=== PATIENT | female | born 1950 | race Caucasian/White ===

== ENCOUNTER 2017-08-12 17:48 | Inpatient (IN) | payer MEDICARE ==
[~2017-08-12] VITALS: Ht 167.6 cm; Wt 119.0 kg
[~2017-08-12 17:48] MED LIST: LISI10TA PO; ZOL50 PO
[2017-08-12 18:15] VITALS: BP 135/66; PULSE 93; RESP 16; O2SAT 100
--- NOTE | 2017-08-12 18:30 | ED.REPORT ---
HPI-Hip/Pelvis Prob/Inj Date of Service Aug 12, 2017 ED Provider: Pedro Pacheco DO A 66 year old female with a history of type II diabetes mellitus and hypertension presents to the ED via EMS with right hip pain secondary to a GLF that occurred just prior to arrival. EMS report that the hip is shortened and externally rotated. Her pain has been constant since onset and radiates to her pelvis. The patient was reportedly walking and slipped onto her right side. She has been unable to bear weight or ambulate following the episode. She received morphine and fentanyl en route. She denies any other injuries of this time. The patient admits to alcohol consumption today prior to the fall. Patient denies any weakness, headache, nausea or vomiting following the fall. Nursing Notes Stated Complaint: GROUND LEVEL FALL WITH HIP PAIN Chief Complaint: Extremity Trauma Nursing Notes Reviewed: Yes Allergies: Coded Allergies: No Known Allergies (Verified Allergy, Unknown, 11/16/10) Scheduled Lisinopril-Expunged Drug, Do Not Renew! (Lisinopril-Expunged Drug, Do Not Renew! ) 10 Mg Tablet 10 MG PO DAILY Sertraline-Expunged Drug, Choose New Med! (Sertraline-Expunged Drug, Choose New Med!) 50 Mg Tab 50 MG PO DAILY General Time Seen by Provider: 18:53 Chief Complaint Hip injury right Hx Obtained From: Patient Arrived By: Ambulance Onset Occurred: Just prior to arrival Symptom Duration: Since onset Progression Since Onset: Unchanged Caused by: Accidental Location: Hip, R lateral aspect Quality: Painful Radiation: Does not radiate Severity: Current: Moderate Severity: Maximum: Moderate Associated with: Reports: Unable to walk, Denies: Weakness Pertinent Negative: Pt denies other symptoms Recent Healthcare: No recent doctor visit, No recent hospitalization Past Medical History Past Medical History Type II diabetes mellitus Hypertension Past Surgical History gastric bypass Reports: Smoking History Never Smoker Social History Alcohol Use: "Social" Drug Use: Denies drug use Other Social History: Good social support, , Local resident Ambulatory Status Independent Review of Systems Unable to bear weight or ambulate + pelvic pain Musculoskeletal: Reports: Joint pain (Right hip pain) Neurologic: Denies: Change LOC, Headache, Weakness Complete sys rev & neg: except as marked. GI: Denies: Nausea, Vomiting Physical Exam Initial Vital Signs Vital Signs (First) Date Time Temp Pulse Resp B/P Pulse Ox O2 Delivery O2 Flow Rate FiO2 08/12/17 18:15 36.6 93 16 135/66 100 Nasal Cannula 2 Initial VS: Reviewed Head / Eyes: Atraumatic, Normocephalic, PERRL Neck: Supple, Non-tender, Full range of motion Upper Extremities: Vascular intact, Neuro intact, No swelling, No tenderness Skin: Warm, Dry, No cyanosis Psychiatric: Mood/affect normal, Behavior normal, Normal thought content Lower Extremity / Pelvis / MS: Neurologic intact, Vascular intact Right Hip: Positive: Leg externally rotated, Tenderness present... Axial rotation exacerbates pain R hip - shortened and externally rotated Good DP and PT pulses General/Constitutional: Awake, Alert Behavior: Positive: Appears intoxicated Head / Eyes: Atraumatic, Normocephalic, PERRL Respiratory / Chest: Atraumatic, Breath sounds NL, Breath sounds = bilat, No respiratory distress Cardiovascular: Heart rate NL, Regular rhythm, Heart sounds NL, Peripheral circulation NL, Pulses = bilaterally Abdomen: Atraumatic, Soft, Non-tender, No guarding, No rebound Interpretation & Diagnostics Lab Results Interpretation Result Diagram: 08/12/177 08/12/177 Test 08/12/17 18:27 White Blood Count 7.3th/mm3 (3.8-10.1) Red Blood Count 4.35mil/mm3 (3.90-5.20) Hemoglobin 12.4g/dL (12.0-15.6) Hematocrit 38.9% (35.0-46.0) Mean Corpuscular Volume 89.4fL (81-100) Mean Corpuscular Hemoglobin 28.5pg (27.0-35.0) Mean Corpuscular Hemoglobin Concent 31.9% (32.0-37.0) Red Cell Distribution Width 16.2% (12.3-15.4) Platelet Count 131bil/L (150-400) Neutrophils (%) (Auto) 64.0% (40-74) Lymphocytes (%) (Auto) 25.5% (14-46) Monocytes (%) (Auto) 8.5% (4-12) Eosinophils (%) (Auto) 1.1% (0-5) Basophils (%) (Auto) 0.4% (0-3) Sodium Level 133mEq/L (134-144) Potassium Level 3.9mEq/L (3.5-5.2) Chloride Level 96mEq/L (97-108) Carbon Dioxide Level 19mmol/L (18-29) Blood Urea Nitrogen 14mg/dL (8-27) Creatinine 0.77mg/dL (0.57-1.00) Estimat Glomerular Filtration Rate 107mL/min (>59) Glucose Level 191mg/dL (60-99) Calcium Level 8.9mg/dL (8.5-10.1) Total Bilirubin 0.3mg/dL (0.0-1.2) Aspartate Amino Transf (AST/SGOT) 19U/L (0-50) Alanine Aminotransferase (ALT/SGPT) 13U/L (0-32) Alkaline Phosphatase 78U/L (25-165) Total Protein 7.1g/dL (6.4-8.4) Albumin 4.1g/dL (3.4-5.0) ECG Interpretation ECG Interpretation: Sinus rhythm probable LVH Rate 93 bpm Time: 20:05 Interpreted by: ED physician X-Ray Chest Interpretation Chest Xray Interpretation: IMPRESSION: No acute pulmonary process. Dictated by: Rosalind Flanagan M.D. on 08/12/2017 at 19:07 Interpretation / Wet Read by: Interpret - Radiologist X-Ray Interpretation Xray Interpretation: IMPRESSION: Nondisplaced right intertrochanteric hip fracture. Dictated by: Rosalind Flanagan M.D. on 08/12/2017 at 19:06 X-Ray Ordered: Hip right Interpretation / Wet Read by: Interpret - Radiologist Re-Eval/Medical Decision Med Decision/Clinical Course Hip fracture. Will admit. Re-Evaluation/Progress : Time of Eval: 19:45 Re-Evaluation/Progress Note: Pain is still present following morphine. Patient is informed of her diagnosis. Consultation #1: Referral / Consult Name: Raphael Duarte DO Consulted With: Orthopedic, Surgeon Call Returned at: 19:30 Consulting Engineer: Will see patient, Agrees with eval, Agrees with plan Note: Discussed pt condition. Will operate tomorrow. Consultation #2: Referral / Consult Name: Josh Acevedo MD Consulted With: Hospitalist Call Returned at: 19:48 Consulting Engineer: Will see patient, Agrees with eval, Agrees with plan, Accepts admit Note: Patient condition discussed. Will accept admission. Counseled Regarding: Diagnosis, Lab results, Need for admission Discharge & Departure Impression: Primary Impression: Intertrochanteric fracture of right hip Encounter type: initial encounter Fracture type: closed Qualified Code: S72.141A - Displaced intertrochanteric fracture of right femur, initial encounter for closed fracture Disposition: ADMITTED TO HOSPITAL Discharge Condition All VS Reviewed: Yes Condition: Stable Referrals: Roshni Brown PA-C (PCP) Scribe Attestation Portions of this note were transcribed by Holly Garcia. I, Dr. Linwood Boyer personally performed the history, physical exam and medical decision-making; I reviewed and confirmed the accuracy of the information in the transcribed note. Signed by Aroldo Bertrand, 08/12/17. copies to: Roshni Brown PA-C, Timothy S DO Aug 12, 2017 18:30 HOLLY GARCIA Aug 12, 2017 19:07
[2017-08-12 18:32] LABS: BASOPHILS % (AUTO) 0.4 % (0-3); EOSINOPHILS % (AUTO) 1.1 % (0-5); MONOCYTES % (AUTO) 8.5 % (4-12); Mean Corpuscular Hemoglobin 28.5 pg (27.0-35.0); Mean Corpuscular Volume 89.4 fL (81-100); Platelet Count 131 bil/L (150-400)
[2017-08-12] MEDS ORDERED: Ondansetron 2 mg/mL 2 mL Inj IVPUSH PRN ×2 (18:35→20:00)
[2017-08-12] MEDS ORDERED: 0.9% Sodium Chloride 1,000 ML IV SCH (18:35)
--- NOTE | 2017-08-12 19:08 | DRSVH ---
PROCEDURE: X-RAY CHEST ONE VIEW ([id number]) INDICATIONS: preop TECHNIQUE: One view of the chest was acquired. COMPARISON: None. FINDINGS: Surgical changes and devices: None. Lungs and pleura: No pleural effusions or pneumothorax. Lungs are clear. Mediastinum: Mediastinal contours appear normal. Heart size is normal. Bones and chest wall: No suspicious bony lesions. Overlying soft tissues appear unremarkable. IMPRESSION: No acute pulmonary process. Dictated by: Rosalind Flanagan M.D. on 08/12/2017 at 19:07 Approved by: Rosalind Flanagan M.D. on 08/12/2017 at 19:07
--- NOTE | 2017-08-12 19:08 | DRSVH ---
PROCEDURE: X-RAY PELVIS W/LAT HIP (RT) ([id number]) INDICATIONS: hip pain TECHNIQUE: AP pelvis with lateral view(s) of the right hip(s). COMPARISON: None. FINDINGS: Bones: There is a nondisplaced right intertrochanteric hip fracture. Soft tissues: The visualized bowel gas pattern is normal. No suspicious soft tissue calcifications. IMPRESSION: Nondisplaced right intertrochanteric hip fracture. Dictated by: Rosalind Flanagan M.D. on 08/12/2017 at 19:06 Approved by: Rosalind Flanagan M.D. on 08/12/2017 at 19:06
[2017-08-12] MEDS ORDERED: fentaNYL-PF 50 mCg/mL 2 mL Inj IVPUSH ONE (19:30)
[2017-08-12] MEDS ORDERED: HYDROcodone-APAP 5-325 mg Tablet PO PRN (20:00)
[2017-08-12] MEDS ORDERED: Alum-Mag Hydrox-Simeth 30 mL Suspension PO PRN (20:00)
[2017-08-12] MEDS ORDERED: Polyethylene Glycol (PEG) 17 Gm Powder PO PRN (20:00)
[2017-08-12 21:09] VITALS: BP 135/63; PULSE 106; RESP 18; O2SAT 92
--- NOTE | 2017-08-12 21:25 | PCM.HPMED ---
Subjective Date of Service Aug 12, 2017 Primary Provider: Admitting Physician: Primary Care Physician: Roshni Brown PA-C Attending Physician: Admit Status: From the Emergency Department, Full Admit, Remote Telemetry Chief Complaint: Right hip pain. . History of Present Illness: Mary Gillette is a 66-year-old female with a past medical history significant for osteoporosis untreated, hypertension, hyperlipidemia, diabetes mellitus type II, non-insulin using, with complication of diabetic peripheral neuropathy who presents to [facility] emergency Department via EMS after enduring a ground-level fall. The patient reports that she was checking on baked potatoes in the oven when she lost her balance and slipped and fell on her linoleum floor. She denies loss of consciousness or trauma to her head. She reports right hip pain since the fall. She rates the pain a +9 out of 10 in severity. She reports she "cracked some ribs "several years ago which prompted she be evaluated for osteoporosis. She reports that she is supposed to be taking calcium and vitamin D but does not. She denies headache, vision changes, chest pain, shortness of breath, abdominal pain, nausea, vomiting, fever, chills, dysuria, constipation or diarrhea. She reports that she has been drinking wine tonight. She denies history of alcohol withdrawal, seizures , or DTs. Vital signs in the ER: Temperature 36.6. Pulse 93. Respiratory rate 16. Blood pressure 135/66. Pulse ox 100% on 2 L nasal cannula. She received fentanyl IV 50 g 1, morphine sulfate IV 4 mg 2, and 1 L of NS in the ED. PCP is Roshni Brown PA-C. Review of Systems: A comprehensive review of systems was conducted with the patient and found to be negative except as above in the History of Present Illness. . Allergies Coded Allergies: No Known Allergies (Verified Allergy, Unknown, 11/16/10) Home Medications Medication list gathered from outpatient records: Furosemide 20 mg daily. Gabapentin 300 mg daily at bedtime. Lisinopril 10 mg daily. Metformin 1000 mg twice a day. Pravastatin 40 mg daily at bedtime. Sertraline 150 mg daily. Novolin and 15 units twice a day before meals. . PMH 1. Hypertension. 2. Hyperlipidemia. 3. Diabetes mellitus type II, non-insulin using, with complication of diabetic peripheral neuropathy. 4. Osteoporosis. 5. Depression. . Surgical History 1. Cholecystectomy. 2. section 1. 3. Bilateral cataract extraction. 4. Bilateral carpal tunnel release. 5. Gastric bypass. . Family History Father history unknown. Mother who had hypertension and from breast cancer. . Social History Hx Alcohol Use: Yes (half bottle of wine 2 nights per week) Hx Substance Use: No Hx Tobacco Use: No Smoking Status: Never Smoker Additional Information The patient has been for 50 years. She has 2 biological children who are both healthy. She worked as a homemaker. . Exam Vital Signs Vital Sign - Last Date Time Temp Pulse Resp B/P Pulse Ox O2 Delivery O2 Flow Rate FiO2 08/12/17 18:15 36.6 93 16 135/66 100 Nasal Cannula 2 Exam General: Middle-aged female lying in bed and then no acute distress, appears uncomfortable, well-developed, well-nourished, slurring speech and appears intoxicated. HEENT: Normocephalic, atraumatic. External ears without defect. Pupils equal, round, and reactive to light. Anicteric sclerae, moist conjunctivae, and no lid lag. Oropharynx free of erythema and cobble stoning with moist mucosa. Neck: Supple with full range of motion. No lymphadenopathy or thyromegaly. Cardiovascular: Regular rate and rhythm without murmurs, rubs, or gallops appreciated Pulmonary: Clear to auscultation bilaterally without crackles, wheezes, or rhonchi. Normal respiratory effort with no use of accessory muscles. Abdomen: Soft, obese, nontender, nondistended, bowel sounds present. No hepatosplenomegaly or masses appreciated. Extremities: No clubbing, cyanosis, or edema. Varicose veins. Tenderness to palpation on right lateral aspect of hip. Right leg externally rotated. Skin: Normal temperature, turgor, and texture; no rash, ulcers, or subcutaneous nodules appreciated. Neurological: Cranial nerves grossly intact. Known gait impairment and problems with balance. Psychiatric: Appears intoxicated with slurred speech. Alert and oriented to person, place, and time. . Lab and Diagnostics Labs Item Value Date Time Calcium Level 8.9 mg/dL 08/12/171826 Magnesium Level 1.8 mg/dL 08/12/171826 Total Bilirubin 0.3 mg/dL 08/12/171826 Aspartate Amino Transf (AST/SGOT) 19 U/L 08/12/171826 Alanine Aminotransferase (ALT/SGPT) 13 U/L 08/12/171826 Alkaline Phosphatase 78 U/L 08/12/171826 Total Protein 7.1 g/dL 08/12/171826 Albumin 4.1 g/dL 08/12/171826 Result Diagram: 08/12/17182608/12/171826 X-Rays, CTs and MRIs X-RAY CHEST ONE VIEW IMPRESSION: No acute pulmonary process. Dictated by: Rosalind Flanagan M.D. on 08/12/2017 at 19:07 X-RAY PELVIS W/LAT HIP (RT) IMPRESSION: Nondisplaced right intertrochanteric hip fracture. Dictated by: Rosalind Flanagan M.D. on 08/12/2017 at 19:06 . 12-lead ECG EKG: Sinus rhythm, heart rate 97, borderline normal axis, prolonged QTC otherwise normal intervals, normal R-wave progression, no pathological Q waves or acute ischemic changes such as ST elevation or depression. . Assessment & Plan Mary Gillette is a 66-year-old female with a past medical history significant for osteoporosis untreated, hypertension, hyperlipidemia, diabetes mellitus type II, non-insulin using, with complication of diabetic peripheral neuropathy who presents to [facility] emergency Department via EMS after enduring a ground-level fall. 1. Acute right intertrochanteric fracture, present on admission. Active. - The patient endured a ground-level fall with immediate right hip pain thereafter. Of note, the patient has history of osteoporosis untreated. - Differential diagnosis includes: Imbalance versus mechanical fall versus alcohol intoxication leading to fall. - X-ray of pelvis with right lateral hip demonstrated nondisplaced right intertrochanteric hip fracture, as above. - Ordered Tylenol 975 mg every 6 hours as needed for mild pain, hydrocodone 5- 325 mg 1-2 every 4 hours as needed for moderate pain and hydromorphone 1 mg every 2 hours as needed for severe pain. - Orthopedic physician, Dr. Duarte, has been consulted who plans to perform surgery on the patient tomorrow. NPO after midnight. We appreciate their time and recommendations. 2. Alcohol intoxication, present on admission. Active. - The patient readily admits to drinking wine this evening. She denies any history of alcohol withdrawal, seizure, or DTs. - Continue to monitor VS and patient closely. 3. Acute hyponatremia, present on admission. Active. - Ordered IV fluid hydration with NS at 100 mL/hr. Chronic problems: 4. Hypertension, present on admission. Stable. - Continue lisinopril 10 mg daily. 5. Hyperlipidemia, present on admission. Stable. - Continue pravastatin 40 mg daily at bedtime 6. Diabetes mellitus type II, non-insulin using, with complication of diabetic peripheral neuropathy, present on admission. Stable. - Hemoglobin A1c pending. - Ordered carbohydrate consistent/heart healthy diet. - Ordered low-dose correctional scale insulin. - Continue Novolin N 15 units twice a day before meals. - Continue gabapentin 300 mg daily at bedtime. - Held metformin. 7. Osteoporosis, present on admission. Stable. - Not medically treated. Patient has been instructed to take vitamin D and calcium however she does not. - Recommendation from orthopedic surgery appreciated. 8. Depression, present on admission. Stable. - Continue sertraline 150 mg daily. Medications not yet reconciled. Day team to reconcile medications. PRN antiemetics: Zofran and Maalox. PRN bowel regimen: Senna and MiraLAX. PRN analgesics: Tylenol. Patient is admitted under inpatient status with expected length of stay greater than 2 midnights due to severity of presenting symptoms, risk of adverse event, and complexity of treatment plan. . VTE Prophylaxis: Sub-Q Heparin (Unfractionated) Resuscitation Status: CPR: Attempt Resuscitation Attending Statement The patient was seen and examined together with Dr. Guerrero on 08/12 and I agree with the history, exam and plan as outlined in the note above. copies to: Roshni Brown PA-C, [place] M DO Aug 12, 2017 21:00 Josh Acevedo MD Aug 13, 2017 01:16
[2017-08-12] MEDS ORDERED: HYDROmorphone 0.5 mg/0.5 mL iSecure Syringe IVPUSH PRN (21:35)
[2017-08-12] MEDS ORDERED: Glucose 40% Oral Gel 15 Gm Tube PO PRN (21:35)
--- NOTE | 2017-08-12 21:55 | CONS ---
[address] [address] CONSULTATION REPORT PATIENT: BUCK ALBERTS : 1950 MR#: [id number] ADMIT: 08/12/2017 JOB ID: [id number] DATE OF SERVICE: 08/12/2017 CHIEF COMPLAINT: Right hip pain. HISTORY OF PRESENT ILLNESS: The patient is a 66-year-old female with right hip pain following a fall at home. She was working, baking in the kitchen, and lost her balance, falling onto her right hip. She normally uses a cane or walking stick when outside of the home. She had onset of severe acute pain and was unable to ambulate after the fall. She lives at home with her son and daughter, and has a disabled 20-year-old daughter that she cares for her. PAST MEDICAL HISTORY: Significant for diabetes mellitus type 2, which she states is under good control. Neuropathy and hypertension. PAST SURGICAL HISTORY: Includes cholecystectomy, carpal tunnel release. SURGERIES: section. Gastric bypass. ALLERGIES: No known drug allergies. PHYSICAL EXAMINATION: Blood pressure 135/63, pulse rate 106, respirations 18, temperature 36.7. She is alert and cooperative, in no acute distress. Her right hip skin is intact. Her right lower extremity is shortened and externally rotated. She is able to move her toes. Her dorsalis pedis pulses +2. Capillary refill less than 3 seconds. X-rays demonstrate a right intertrochanteric fracture. ASSESSMENT: Right intertrochanteric hip fracture. PLAN: We discussed treatment options for this, and I recommend right hip nailing. Will plan for this tomorrow and keep the patient n.p.o. after midnight. Plan for surgery tomorrow assuming that she is felt to be medically optimized for surgery. Anticipate that she will need to be in the hospital for about three days and that this will take about six weeks to recover and that she will need additional help in that time.
[2017-08-12] MEDS: Insulin LISPRO 300 Unit/3 mL Inj SUBQ SCH (22:00)
[2017-08-12 22:14] VITALS: BP 147/79; PULSE 108; RESP 17; O2SAT 92
[2017-08-12] MEDS ORDERED: [UNRECOGNIZED DRUG - OTHER] (22:20)
[2017-08-12] MEDS ORDERED: humalog (22:20)
[2017-08-12] MEDS ORDERED: furosemide (22:20)
[2017-08-12] MEDS ORDERED: metformin (22:20)
[2017-08-12] MEDS: 0.9% Sodium Chloride 1,000 ML IV SCH (22:48)
--- NOTE | 2017-08-12 23:46 | NUR ---
Admit Note Pt. arrived at the unit at 2200 via gurney accompanied by ED staff, requires 1-2 PA for bed mobility, oriented to RM and call light, A&Ox3, calm, pleasant and cooperative to staff and care, administered prn IV morphine upon request for right hip pain, pt. reports a relief, Started IVF for hydration, made pt. aware of NPO after midnight, pt. refused butler cath placement at this time, uses bedpan for voiding, notified, placed on tele at midnight [address] 106 per operating room technician, VSS afebrile, call light in reach at all times, will continue to monitor.
[2017-08-13] VITALS (12 sets, daily range): BP systolic 111–149; BP diastolic 52–79; PULSE 87–106; RESP 10–18; O2SAT 91–100
[2017-08-13] MEDS: Heparin 5,000 Unit/mL Inj SUBQ SCH ×3 (00:01→16:30)
[2017-08-13] MEDS ORDERED: LORazepam 0.5 mg Tablet PO ONE (01:40)
[2017-08-13 06:19] LABS: BASOPHILS % (AUTO) 0.2 % (0-3); EOSINOPHILS % (AUTO) 0.7 % (0-5); Mean Corpuscular Volume 90.6 fL (81-100); NEUTROPHILS % (AUTO) 71.1 % (40-74); Platelet Count 93 bil/L (150-400)
[2017-08-13] MEDS ORDERED: fentaNYL-PF 50 mCg/mL 2 mL Inj ONE (07:46)
[2017-08-13] MEDS ORDERED: Propofol 10,000 mCg/mL 20 mL Inj ONE ×2 (07:46→08:10)
[2017-08-13] MEDS ORDERED: Rocuronium 10 mg/mL 5 mL Inj ONE ×2 (07:46→08:10)
[2017-08-13] MEDS: Insulin LISPRO 300 Unit/3 mL Inj SUBQ SCH ×4 (08:00→22:00)
[2017-08-13] MEDS: 0.9% Sodium Chloride 1,000 ML IV SCH ×3 (08:09→23:27)
[2017-08-13] MEDS ORDERED: Neostigmine 1 mg/mL 10 mL Inj ONE (08:10)
[2017-08-13] MEDS ORDERED: Glycopyrrolate 0.2 MG/ML 1mL Inj ONE (08:10)
[2017-08-13] MEDS ORDERED: Ondansetron 2 mg/mL 2 mL Inj ONE (08:10)
[2017-08-13] MEDS ORDERED: HYDROmorphone 1 mg/mL Inj ONE (08:10)
--- NOTE | 2017-08-13 10:51 | NUR ---
Butler 16F butler placed. Tolerated well. draining yellow urine with some sediment present. UA sent to lab with last bedpan use.
[2017-08-13] MEDS ORDERED: HYDROmorphone 1 mg/mL Inj IVPUSH PRN ×3 (11:15→20:25)
--- NOTE | 2017-08-13 11:22 | PCM.PNMED ---
Subjective Date of Service Aug 13, 2017 Subjective Patient seen and examined. In pain. Vitals noted. Exam Vital Signs Vital Sign - Last Date Time Temp Pulse Resp B/P Pulse Ox O2 Delivery O2 Flow Rate FiO2 08/13/17 09:27 90 08/13/17 07:40 36.7 18 135/79 95 Room Air 08/12/17 18:15 2 Intake and Output 08/12/17 08/12/17 08/13/17 Cumulative From/Thru 15:00 23:00 07:00 08/12/17 18:15 - 08/13/17 06:24 Intake Total 1000 ml 972 ml 1972 ml Output Total 950 ml 950 ml Balance 1000 ml 22 ml 1022 ml Intake Oral 240 ml 240 ml IV Total 1000 ml 732 ml 1732 ml Output Urine Total 950 ml 950 ml Exam General: Middle-aged female lying in bed in acute pain Cardiovascular: Regular rate and rhythm without murmurs, rubs, or gallops appreciated Pulmonary: Clear to auscultation bilaterally without crackles, wheezes, or rhonchi. Normal respiratory effort with no use of accessory muscles. Abdomen: Soft, obese, nontender, nondistended, bowel sounds present. No hepatosplenomegaly or masses appreciated. Extremities: No clubbing, cyanosis, or edema. Varicose veins. Tenderness to palpation on right lateral aspect of hip. Right leg externally rotated. Lab and Diagnostics Result Diagram: 08/13/17 0550 08/13/17 0550 X-Rays, CTs and MRIs X-RAY CHEST ONE VIEW IMPRESSION: No acute pulmonary process. Dictated by: Rosalind Flanagan M.D. on 08/12/2017 at 19:07 X-RAY PELVIS W/LAT HIP (RT) IMPRESSION: Nondisplaced right intertrochanteric hip fracture. Dictated by: Rosalind Flanagan M.D. on 08/12/2017 at 19:06 . 12-lead ECG EKG: Sinus rhythm, heart rate 97, borderline normal axis, prolonged QTC otherwise normal intervals, normal R-wave progression, no pathological Q waves or acute ischemic changes such as ST elevation or depression. . Assessment & Plan Mary Gillette is a 66-year-old female with a past medical history significant for osteoporosis untreated, hypertension, hyperlipidemia, diabetes mellitus type II, non-insulin using, with complication of diabetic peripheral neuropathy who presents to [facility] emergency Department via EMS after enduring a ground-level fall. 1. Acute right intertrochanteric fracture, present on admission. Active. - The patient endured a ground-level fall with immediate right hip pain thereafter. Of note, the patient has history of osteoporosis untreated. - Differential diagnosis includes: Imbalance versus mechanical fall versus alcohol intoxication leading to fall. - X-ray of pelvis with right lateral hip demonstrated nondisplaced right intertrochanteric hip fracture, as above. - Ordered Tylenol 975 mg every 6 hours as needed for mild pain, hydrocodone 5- 325 mg 1-2 every 4 hours as needed for moderate pain and hydromorphone 0.5 mg every 2 hours as needed for severe pain. Morphine IV was not helping her - Orthopedic physician, Dr. Duarte, has been consulted who plans to perform surgery today 2. Alcohol intoxication, present on admission. - The patient readily admits to drinking wine this evening. She denies any history of alcohol withdrawal, seizure, or DTs. - Continue to monitor VS and patient closely. 3. Acute hyponatremia, present on admission. Resolved - continue IV fluid hydration NS 50ml/hr Chronic problems: 4. Hypertension, present on admission. Stable. - home meds need to be reconciled, will restart once its done - takes lasix at home for ankle edema, dose unknown, will hold it now anyways as patient will be going for a surgery, restart tomorrow - gently hydrate her at 50mls/hr 5. Hyperlipidemia, present on admission. Stable. - takes parvastatin at home 40mg daily, continue home meds 6. Diabetes mellitus type II, non-insulin using, with complication of diabetic peripheral neuropathy, present on admission. Stable. - Hemoglobin A1c pending. - Ordered carbohydrate consistent/heart healthy diet. - Ordered low-dose correctional scale insulin. patient npo at this point for surgery - Continue Novolin N 15 units twice a day before meals. Home meds need to be reconciled, will restart once its done - takes gabapentin 300 mg daily at bedtime. - Held metformin. Home meds need to be reconciled, will restart once its done 7. Osteoporosis, present on admission. Stable. - Not medically treated. Patient has been instructed to take vitamin D and calcium however she does not. - Recommendation from orthopedic surgery appreciated. 8. Depression, present on admission. Stable. -On sertraline at home, continue home meds. PRN antiemetics: Zofran and Maalox. PRN bowel regimen: Senna and MiraLAX. PRN analgesics: Tylenol. Patient is admitted under inpatient status with expected length of stay greater than 2 midnights due to severity of presenting symptoms, risk of adverse event, and complexity of treatment plan. . VTE Prophylaxis: Sub-Q Heparin (Unfractionated) VTE Mechanical Devices: Intermittant Pneumatic CD Resuscitation Status: CPR: Attempt Resuscitation Time spent 35 mins Neal Diane MD Aug 13, 2017 11:22 Neal Diane MD Aug 13, 2017 11:22
[2017-08-13] MEDS ORDERED: FUR20 PO (12:09)
[2017-08-13] MEDS ORDERED: PRV40T PO (12:09)
[2017-08-13] MEDS ORDERED: GABA-502 PO (12:17)
[2017-08-13] MEDS ORDERED: SERT100T9 ORAL (12:17)
[2017-08-13] MEDS ORDERED: NPH,100V10 SQ (12:17)
[2017-08-13] MEDS ORDERED: LISI10TA PO (12:17)
[2017-08-13] MEDS ORDERED: METF850T2 PO (12:17)
[2017-08-13 12:20] LABS: APPEARANCE,URINE HAZY (CLEAR,HAZY); COLOR,URINE STRAW (YELLOW); OCCULT BLOOD,URINE NEGATIVE (NEGATIVE); UROBILINOGEN,URINE NORMAL (NORMAL)
--- NOTE | 2017-08-13 13:06 | NUR ---
Pain Pt having 8/10 pain in right hip s/p IV Dilaudid 1 hour ago. Request made to MD for change in rx.
[2017-08-13] MEDS: HYDROmorphone 1 mg/mL Inj IVPUSH PRN ×2 (13:34→15:17)
[2017-08-13] MEDS ORDERED: METF-496 PO (14:39)
[2017-08-13] MEDS: Insulin Human NPH 100 Unit/mL Syringe SUBQ SCH (16:30)
[2017-08-13] MEDS ORDERED: Insulin Human NPH 100 Unit/mL 3 mL Inj SUBQ SCH (16:30)
--- NOTE | 2017-08-13 17:10 | NUR ---
Pain/mobility New order received for dilaudid. Pain able to get down to 7/10. able to move hips slightly with pain. Adams placed per MD order, pt request for comfort. Awaiting OR tonight. Will transfer to [facility] post surgery, pt and family aware.
--- NOTE | 2017-08-13 17:30 | NUR ---
To OR Pt taken in bed to OR, present and followed patient. Report given to Carolyne. To transfer to [facility] post surgical procedure.
--- NOTE | 2017-08-13 17:31 | PCM.HPANE ---
Patient Data Surgeon Admitting Provider:Josh Acevedo MD Attending Provider:Neal iDane MD Primary Care Physician:Roshni Brown PA-C Other Provider: Reason for Visit Right It Fracture Ht/WT & BMI Height (Feet): 5 Height (Inches): 6.00 Weight (Kilograms): 111.360 Body Mass Index 39.46 Allergies Coded Allergies: No Known Allergies (Verified Allergy, Unknown, 08/13/17) Past Anesthesia History Anesthesia History: Denies:: Anesthesia Reactions Diabetes History Hx Diabetes?: Yes (type 2) Current Bedside Blood Glucose: 161 MRSA MRSA: No Medications Reported Medications Metformin ER 1,000 Mg Tablet1,000 Mg PO BID #60 08/13/17 NPH, Human Insulin Isophane (Novolin-N U100 Insulin Vial)100 Unit/1 Ml Vial15 Units SQ BID #10 08/13/17 Sertraline HCl (Sertraline)100 Mg Sublax026 Mg ORAL DAILY #30 08/13/17 Lisinopril 10 Mg Ewychb90 Mg PO DAILY 30 Days Ref 0 08/13/17 Gabapentin 300 Mg Suhlrln798 Mg PO HS #30 08/13/17 Pravastatin (Pravachol)40 Mg Lkbwun46 Mg PO HS #30 08/13/17 Furosemide 20 Mg Tab20 Mg PO DAILY #30 08/13/17 Discontinued Reported Medications Metformin 850 Mg Tablet1,000 Mg PO BIDWM Ref 0 08/13/17 [humalog] No Conflict Check15 Bid 08/12/17 [furosemide] No Conflict Check 08/12/17 [metformin] No Conflict Check 08/12/17 Sertraline-Expunged Drug, Choose New Med! 50 Mg Tab50 Mg PO DAILY 11/16/10 Lisinopril-Expunged Drug, Do Not Renew! 10 Mg Yssurm69 Mg PO DAILY 11/16/10 History History of ENT Problems?: Yes HEENT History: Positive for:: Cataracts Sinus Problem Denture Type: None Teeth Condition: Tooth Decay Inflamed Gums Hx of Heart Problems?: Yes Cardiovascular History: Positive for:: Edema Hypertension Denies:: AICD Abdominal Aortic Aneurism Atrial Fibrillation Cardiac Surgery Chest Pain Congestive Heart Failure Coronary Artery Disease Heart Murmur Irregular Heartbeat Pacemaker Peripheral Vascular Rheumatic Fever Thrombophlebitis Valvular Heart Disease Hx of Respiratory Problem?: No Respiratory History: Denies:: Asthma COPD Chest Surgery Cough Dyspnea Emphysema Hemoptysis Oxygen Administration Pneumonia Pulmonary Embolism Tuberculosis Use of C-PAP Machine Use of Inhalers / NEBS Hx Neurologic Problems?: No Neurological History: Denies:: Alzheimer's Disease CVA Dementia Dizziness Headaches Multiple Sclerosis Parkinson's Disease Peripheral Neuropathy Seizures TIA Hx of GI Problems?: Yes Gastrointestinal History: Denies:: Cirrhosis Diverticulitis Gall Bladder Disease Gastroesphageal Reflux Gastrointestinal Bleeding Heartburn Hepatitis Hiatal Hernia Liver Disease Rectal Bleeding Other GI Pertinent History: Cholecystectomy Hx of Problems?: No Genitourinary History: Denies:: HX of Hemodialysis Kidney Stones Urinary Tract Infection Female Hx: Denies:: Currently Endometriosis Pelvic Inflammatory Problems with Breasts? Skin History: Denies:: History Skin Disorders? Pressure Ulcers Hx Musculoskeletal Problems?: Yes Musculoskeletal History: Positive for:: Back Injury (slipped disc) Denies:: Degenerative Joint Fibromyalgia Joint Replacement Musculoskeletal Trauma Myasthenia Gravis Osteoarthritis Rheumatoid Arthritis Systemic Lupus Hx of Psycho/Social Problems?: Yes Psycho Social History: Positive for:: Hx Depression Denies:: Anxiety Bipolar Disorder Suicide Attempt Hx Surgeries?: Yes Hx Any Other Health Problems?: Yes Other History: Positive for:: Cancer (skin cancer that has been resolved) Hospitalization History Blood Transfusions: Positive for:: Accept Blood Products? Denies:: Blood Transfuse Reaction Blood Transfusions Hx Diabetes: Yes (type 2)Bedside Blood Glucose: 161 Other Pertinent History: Gastric bypass, hiatal surgery, , Sh[place], cataract, carpel tunnel surgey Hx Alcohol Use: YesAlcoholic Drinks Per Day: only on the weekendHx Substance Use: No Smoking Status: Never Smoker Stop/Bang Treated for Sleep Apnea?: No Do You Have a CPAP Machine?: No S-Snoring: Do You Snore Loudly: No T-Tired: feel tired, fatigued: No O-Obsered: Observed not breath: No P-Blood Pressure: treated: Yes B- Body Mass Index > 35 kg/m2: Yes A- Age over 50: Yes N- Neck Large Circumference: No G- Gender Male: No ELAINE Total Score: 3 Risk Assessment Category Category 1A: Patient has history of documented sleep apnea, and HAS NOT received any narcotic, sedative or anesthesia administration during this stay. Category 1B: Patient has history of documented sleep apnea, and HAS received any narcotic , sedative or anesthesia administration during this stay Category 2: Patient has SUSPECTED Obstructive Sleep Apnea, and HAS received any narcotic , sedative or anesthesia administration during this stay. Category 3: Patient has SUSPECTED Obstructive Sleep Apnea and HAS NOT received narcotic, sedative or anesthesia administration during this stay. Category 4: Outpatient in Procedural Areas with known sleep apnea or who screen positive for High Risk via the STOP/BANG questionnaire. Exam Exam Vital Signs Vital Signs Date Time Temp Pulse Resp B/P Pulse Ox O2 Delivery O2 Flow Rate FiO2 08/13/17 16:30 36.7 93 16 147/71 96 Room Air 08/13/17 12:45 36.9 94 16 135/76 91 Room Air General Appearance: Alert, Oriented X3, Cooperative, Mild Distress HEENT/AIRWAY: MP 3, Neck Movement (THICK, 30% expected ROM, TMD = 4FB), Mouth Opening (small to moderate) Lungs: Clear to Auscultation Heart: Exam Unremarkable Meds/Labs/Diagnostics Admission Meds Current Medications Sodium Chloride (Normal Saline) 1,000 ml @ 100 mls/hr Q10H IV Last administered on 08/12/17 19:13; Start 08/12/17 at 18:35; Stop 08/12/17 at 20:14 ; Status DC Fentanyl Citrate (Sublimaze Inj) 50 mcg ONCE ONCE IVPUSH Last administered on 08/12/17 19:33; Start 08/12/17 at 19:30; Stop 08/12/17 at 19:31; Status DC Heparin Sodium (Porcine) 5000 unit 5,000 unit Q8 SUBQ Last administered on 08/13 00:01; Start 08/13/17 at 00:30 Sodium Chloride (Normal Saline) 1,000 ml @ 50 mls/hr Q20H IV Last administered on 08/13/17 08:09; Start 08/12/17 at 19:58 Bedside Blood Glucose: 161 Labs Test 08/12/17 18:27 08/13/17 05:50 08/13/17 10:41 Magnesium Level 1.8mg/dL (1.6-2.6) Total Bilirubin 0.3mg/dL (0.0-1.2) Aspartate Amino Transf (AST/SGOT) 19U/L (0-50) Alanine Aminotransferase (ALT/SGPT) 13U/L (0-32) Alkaline Phosphatase 78U/L (25-165) Total Protein 7.1g/dL (6.4-8.4) Albumin 4.1g/dL (3.4-5.0) White Blood Count 5.5th/mm3 (3.8-10.1) Red Blood Count 3.62mil/mm3 (3.90-5.20) Hemoglobin 10.5g/dL (12.0-15.6) Hematocrit 32.8% (35.0-46.0) Mean Corpuscular Volume 90.6fL (81-100) Mean Corpuscular Hemoglobin 29.0pg (27.0-35.0) Mean Corpuscular Hemoglobin Concent 32.0% (32.0-37.0) Red Cell Distribution Width 15.7% (12.3-15.4) Platelet Count 93bil/L (150-400) Neutrophils (%) (Auto) 71.1% (40-74) Lymphocytes (%) (Auto) 18.6% (14-46) Monocytes (%) (Auto) 9.0% (4-12) Eosinophils (%) (Auto) 0.7% (0-5) Basophils (%) (Auto) 0.2% (0-3) Sodium Level 139mEq/L (134-144) Potassium Level 4.5mEq/L (3.5-5.2) Chloride Level 106mEq/L (97-108) Carbon Dioxide Level 24mmol/L (18-29) Blood Urea Nitrogen 11mg/dL (8-27) Creatinine 0.68mg/dL (0.57-1.00) Estimat Glomerular Filtration Rate 123mL/min (>59) Glucose Level 147mg/dL (60-99) Calcium Level 7.7mg/dL (8.5-10.1) Urine Color Straw (YELLOW) Urine Appearance Hazy (CLEAR,HAZY) Urine pH 6.0 (5.0-8.0) Urine Specific [place] 1.020 (1.003-1.035) Urine Protein Negativemg/dL (NEG,TRACE) Urine Glucose (UA) Negativemg/dL (NEGATIVE) Urine Ketones Negativemg/dL (NEGATIVE) Urine Occult Blood Negative (NEGATIVE) Urine Nitrite Positive (NEGATIVE) Urine Bilirubin Negative (NEGATIVE) Urine Urobilinogen Normalmg/dL (NORMAL) Urine Leukocyte Esterase Negative (NEGATIVE) Urine RBC 0-2/hpf (0-2) Urine WBC 6-10/hpf (0-5) Urine Epithelial Cells Occasional/hpf (NONE-MOD) Urine Crystals None seen (NONE SEEN) Urine Bacteria Many/hpf (NONE-FEW) Urine Hyaline Casts Occasional/lpf (NONE) Urine Granular Casts None seen (NONE SEEN) Urine Waxy Casts None seen (NONE SEEN) Urine Red Blood Cell Casts None seen (NONE SEEN) Urine White Blood Cell Casts None seen (NONE SEEN) Urine Mucus None seen (None Seen) Urine Trichomonas None seen (NONE SEEN) Urine Yeast None (NONE SEEN) Urinalysis Comment None Urine Culture Reflexed Indicated Plan Impression Patient chart reviewed, patient interviewed and anesthestic plan with risks, benefits, and alternatives discussed, and informed consent obtained. ASA Physical Status: ASA3 Severe Disease Anesthetic Plan: GA Bene/Risks/Altern/Consents: Yes HP Complete Prior to Induction: Yes Willie Bergman MD Aug 13, 2017 17:31
--- NOTE | 2017-08-13 17:34 | NUR ---
Nasal packing/BP stated nasal packing anytime, order written. Notified of elevated BP, gave hospitalist phone number to consult. Pain 12/29 Addendum: 08/13/17 at 1742 by KARIE RODRIGUEZ RN Charted on wrong patient.
--- NOTE | 2017-08-13 17:47 | NUR ---
Social Work Note: Initial Assessment Data& Assessment: EMR Reviewed. [employer] met with pt at bedside to discuss discharge planning, SW role explained and discharge planning checklist packet provided. Mary Gillette 66 year old female admitted on 08/12/2017 for right hip fracture. Pt has Medicare and AARP supplemental insurance coverage. Pt sees Roshni SHELBY for primary care. Pt does not have VA benefits or LTC insurance. Pt lives in [place] with her spouse in two level home with two steps to enter the home. Pt is independent with all ADL's at baseline and drives normally. Pt owns a cane and occasionally uses the cane outside the home. Pt does not have HH or SNF hx. MD does not identify any concerns for pt capacity for self care at this time. [employer] requested a completed copy of her DPOA/AD paperwork to review and complete when possible. Pt also confirmed that pt to transport pt home when medically ready. Pt denies any needs at this time. [employer] to follow for PT recommendations and evaluation. No MD orders identified. [employer] phone number provided on pt white board. Plan: Anticipated discharge home via POV when medically ready. [employer] to continue to follow if any pt needs or MD orders arise. MISA Gordon Addendum: 08/13/17 at 1751 by CUCA CHENEY Amended: Links added.
[2017-08-13] MEDS ORDERED: Lactated Ringer's 1,000 ML IV ONE ×2 (18:10→20:00)
[2017-08-13] MEDS ORDERED: Lactated Ringer's 500 ML IV PRN (18:58)
[2017-08-13] MEDS ORDERED: Lactated Ringer's 1,000 ML IV SCH (18:58)
[2017-08-13] MEDS ORDERED: Atropine 0.4 mg/mL Inj IVPUSH PRN (19:00)
[2017-08-13] MEDS ORDERED: EPHEDrine Sulfate 50 mg/mL Inj IVPUSH PRN (19:00)
[2017-08-13] MEDS ORDERED: Ondansetron 2 mg/mL 2 mL Inj IVPUSH PRN ×2 (19:00→20:25)
[2017-08-13] MEDS ORDERED: Labetalol 5 mg/mL 20 mL Inj IV PRN (19:00)
[2017-08-13] MEDS ORDERED: MetoCLOpramide 5 mg/mL 2 mL Inj IVPUSH PRN (19:00)
[2017-08-13] MEDS ORDERED: Phenylephrine 10,000 mCg/mL Inj IVPUSH PRN (19:00)
[2017-08-13] MEDS ORDERED: Ropivacaine-PF 0.5% 30 mL Inj INJ ONE (19:05)
[2017-08-13] MEDS ORDERED: Tranexamic Acid 100 mg/mL 10 mL Inj ONE (19:15)
[2017-08-13] MEDS ORDERED: Tranexamic Acid 100 mg/mL 10 mL Inj TOPICAL ONE (19:17)
[2017-08-13] MEDS ORDERED: Polyethylene Glycol (PEG) 17 Gm Powder PO PRN (20:25)
[2017-08-13] MEDS ORDERED: Magnesium Hydroxide 10 mL Oral Concentration PO PRN (20:25)
[2017-08-13] MEDS ORDERED: diphenhydrAMINE 25 mg Capsule PO PRN (20:25)
[2017-08-13] MEDS: Senna-Docusate 8.6-50 mg Tablet PO SCH (20:30)
[2017-08-13] MEDS: fentaNYL-PF 50 mCg/mL 2 mL Inj IVPUSH PRN ×2 (20:37→20:50)
--- NOTE | 2017-08-13 20:43 | PCM.ANEP1 ---
Post Anesthesia PACU Phase 1 Assessment Date of Service: Aug 13, 2017 Vital Signs Vital Signs Date Time Temp Pulse Resp B/P Pulse Ox O2 Delivery O2 Flow Rate FiO2 08/13/17 20:33 87 14 132/57 100 Simple Mask 8 08/13/17 20:24 36.7 91 14 111/78 100 Simple Mask 8 08/13/17 16:30 36.7 93 16 147/71 96 Room Air 08/13/17 12:45 36.9 94 16 135/76 91 Room Air Level of Alertness: Awake, talking Pain: Yes Nausea or Vomiting: No CV Function & Hydration Stable: Yes Airway Device: Oxygen Delivery: Room Air Lungs: Clear to Auscultation PACU Phase 2 Assessment Complications: No Follow up Care: No Patient Instructions Provided: N/A Raphael Valadez MD Aug 13, 2017 20:42
[2017-08-13] MEDS: HYDROcodone-APAP 7.5-325 mg Tablet PO PRN (21:46)
[2017-08-13] MEDS: hydrOXYzine Pamoate 25 mg Capsule PO PRN (21:46)
[2017-08-14] VITALS (7 sets, daily range): BP systolic 98–120; BP diastolic 61–69; PULSE 84–111; RESP 18–20; O2SAT 93–99
[2017-08-14] MEDS: Sodium Chloride LOK Flush 10 mL Syringe IV SCH ×3 (00:09→15:19)
[2017-08-14] MEDS: Heparin 5,000 Unit/mL Inj SUBQ SCH (00:14)
--- NOTE | 2017-08-14 02:25 | OP ---
[address] [address] OPERATIVE REPORT PATIENT: BUCK ALBERTS : 1950 MR#: [id number] ADMIT: 08/12/2017 JOB ID: [id number] DATE OF SURGERY: 08/13/2017 PREOPERATIVE DIAGNOSIS(ES): Right intertrochanteric hip fracture. POSTOPERATIVE DIAGNOSIS(ES): Right intertrochanteric hip fracture. PROCEDURE: Right hip intramedullary nail. SURGEON: Raphael Duarte DO ANESTHESIA: General. INDICATIONS: The patient is a 66-year-old female who fell at home yesterday, sustaining a right intertrochanteric fracture with some subtrochanteric extension. We discussed treatment options for this and she wished to proceed with a right hip nailing. We discussed the risks, benefits, and possible complications of surgery including, but not limited to, injury to nerves and vessels, infection, bleeding, incomplete relief of symptoms, stiffness, need for additional procedures. The patient had good understanding. All questions were answered. She wished to proceed. PROCEDURE IN DETAIL: The patient is brought to the operating room. She was given preoperative antibiotic and general anesthetic. Placed onto the fracture table. The right hip was then reduced with a combination of traction, internal rotation, and confirmation of the reduction was made with fluoroscopy. The right hip was sterilely prepped and draped. An incision was made about three fingerbreadths above the greater trochanter in line with the femur. Dissection was carefully carried through the subcutaneous tissue and down onto the proximal femur. She was noted to have fairly brisk venous bleeding. At this point, a guidewire was placed at the tip of the trochanter and advanced into the intramedullary femur. This was over-reamed with a reamer and then a ball-tipped guidewire was advanced down to the femur. I elected to use a long nail as I was concerned about some subtrochanteric extension. The femur was reamed sequentially up to a 13.5 for placement of a 12 nail which measured 380 mm in length. The 130-degree Synthes PFNA nail was then advanced without difficulty. Again, she was noted to have more than normal bleeding during the reaming process and nail insertion. This was tapped into position and then an incision was made for lag screw placement, and again brisk venous bleeding was noted upon skin incision. The lag screw guide pin was placed into the center-center position of the head and a 110 mm lag screw was inserted, had excellent fixation. Next, a distal lock was performed using a perfect muscogee technique. A small incision was made over the proximal locking screw, and again brisk venous bleeding was encountered. This was drilled and the screw was placed bicortically in the distal femur through the proximal locking hole and through the static locking hole. The wounds were irrigated and then injected with some ropivacaine with epinephrine, and closed with 0 Vicryl to close the deep fascia, 2-0 to close the subcu and the skin was closed with mike. Sterile dressings were applied. The patient tolerated the procedure well. BLOOD LOSS: 500 cc. POSTOPERATIVE PROTOCOL: Have the patient remain 50% partial weightbearing on the right lower extremity. She does seem to have some extension below the lesser trochanter perhaps, and I would like to check PT/INR on her in the morning, and I am concerned the patient may have altered liver function due to alcohol intake.
--- NOTE | 2017-08-14 03:04 | NUR ---
Arrival to Room 1027 Patient arrived to room 1027 from PACU at 2118 via hospital bed accompanied by BENI Cali. Patient alert and oriented x 3. Patient stated pain 7/10 on pain scale. PO Vicodin administered along with Vistaril. VSS. Dressing CDI. Patient stated right leg was "spasming". Dr. Duarte in room to see patient. Call light within reach. Care continues.
[2017-08-14] MEDS: HYDROcodone-APAP 7.5-325 mg Tablet PO PRN ×3 (03:11→12:35)
[2017-08-14] MEDS: CeFAZolin Inj 2 GM in IV Premix 1 EACH IV SCH ×2 (03:12→10:20)
[2017-08-14] MEDS: hydrOXYzine Pamoate 25 mg Capsule PO PRN ×5 (03:32→21:45)
[2017-08-14 06:16] LABS: BASOPHILS % (AUTO) 0.3 % (0-3); EOSINOPHILS % (AUTO) 0.7 % (0-5); MONOCYTES % (AUTO) 8.2 % (4-12); Mean Corpuscular Hemoglobin 28.1 pg (27.0-35.0); Mean Corpuscular Volume 92.5 fL (81-100); NEUTROPHILS % (AUTO) 75.9 % (40-74); Platelet Count 100 bil/L (150-400)
[2017-08-14] MEDS: 0.9% Sodium Chloride 1,000 ML IV SCH (06:25)
--- NOTE | 2017-08-14 06:32 | NUR ---
Dressing Right Hip On second assessment, patient has moderate drainage on upper part of dressing.
[2017-08-14 06:50] LABS: INR 1.07 ratio
[2017-08-14] MEDS: Insulin LISPRO 300 Unit/3 mL Inj SUBQ SCH ×4 (08:00→21:47)
[2017-08-14] MEDS: Senna-Docusate 8.6-50 mg Tablet PO SCH ×2 (08:39→21:53)
--- NOTE | 2017-08-14 08:40 | PCM.PNORTH ---
Subjective Date of Service: Aug 14, 2017 Visit Information: Reason for Visit Right It Fracture Surgery/Surgery Date Post-Op Day # 1 Date of Admission: Aug 12, 2017 at 20:58 Hospital Day # Subjective Patient states she is having severe pain. She states she is trying not to move and her hip still hurts. She is ordering breakfast while we speak Postop General: No Shortness of Breath, No Chest Pain Pain Management: PO Objective Exam Objective Patient sitting up in bed Vital Signs and I/O Vital Sign - Last Date Time Temp Pulse Resp B/P Pulse Ox O2 Delivery O2 Flow Rate FiO2 08/14/17 08:00 36.4 88 19 114/66 93 Room Air 08/14/17 04:50 2.00 Intake and Output 08/13/17 08/13/17 08/14/17 Cumulative From/Thru 15:00 23:00 07:00 08/12/17 18:15 - 08/14/17 06:19 Intake Total 2592 ml 761 ml 5325 ml Output Total 700 ml 300 ml 1950 ml Balance 1892 ml 461 ml 3375 ml Intake Oral 400 ml 640 ml IV Total 2592 ml 361 ml 4685 ml Output Urine Total 700 ml 300 ml 1950 ml # Bowel Movements 0 0 Lab & Micro Results Laboratory Tests Test 08/13/17 10:41 08/14/17 05:30 Urine Color Straw (YELLOW) Urine Appearance Hazy (CLEAR,HAZY) Urine pH 6.0 (5.0-8.0) Urine Specific [place] 1.020 (1.003-1.035) Urine Protein Negativemg/dL (NEG,TRACE) Urine Glucose (UA) Negativemg/dL (NEGATIVE) Urine Ketones Negativemg/dL (NEGATIVE) Urine Occult Blood Negative (NEGATIVE) Urine Nitrite Positive (NEGATIVE) Urine Bilirubin Negative (NEGATIVE) Urine Urobilinogen Normalmg/dL (NORMAL) Urine Leukocyte Esterase Negative (NEGATIVE) Urine RBC 0-2/hpf (0-2) Urine WBC 6-10/hpf (0-5) Urine Epithelial Cells Occasional/hpf (NONE-MOD) Urine Crystals None seen (NONE SEEN) Urine Bacteria Many/hpf (NONE-FEW) Urine Hyaline Casts Occasional/lpf (NONE) Urine Granular Casts None seen (NONE SEEN) Urine Waxy Casts None seen (NONE SEEN) Urine Red Blood Cell Casts None seen (NONE SEEN) Urine White Blood Cell Casts None seen (NONE SEEN) Urine Mucus None seen (None Seen) Urine Trichomonas None seen (NONE SEEN) Urine Yeast None (NONE SEEN) Urinalysis Comment None Urine Culture Reflexed Indicated White Blood Count 6.9th/mm3 (3.8-10.1) Red Blood Count 3.06mil/mm3 (3.90-5.20) Hemoglobin 8.6g/dL (12.0-15.6) Hematocrit 28.3% (35.0-46.0) Mean Corpuscular Volume 92.5fL (81-100) Mean Corpuscular Hemoglobin 28.1pg (27.0-35.0) Mean Corpuscular Hemoglobin Concent 30.4% (32.0-37.0) Red Cell Distribution Width 15.7% (12.3-15.4) Platelet Count 100bil/L (150-400) Neutrophils (%) (Auto) 75.9% (40-74) Lymphocytes (%) (Auto) 14.3% (14-46) Monocytes (%) (Auto) 8.2% (4-12) Eosinophils (%) (Auto) 0.7% (0-5) Basophils (%) (Auto) 0.3% (0-3) Prothrombin Time 11.1sec (8.1-12.5) Prothromb Time International Ratio 1.07ratio Sodium Level 139mEq/L (134-144) Potassium Level 4.6mEq/L (3.5-5.2) Chloride Level 105mEq/L (97-108) Carbon Dioxide Level 27mmol/L (18-29) Blood Urea Nitrogen 8mg/dL (8-27) Creatinine 0.73mg/dL (0.57-1.00) Estimat Glomerular Filtration Rate 114mL/min (>59) Glucose Level 149mg/dL (60-99) Calcium Level 7.5mg/dL (8.5-10.1) Microbiology 08/13/17 Urine Culture - Preliminary, Resulted Result Diagram: 08/14/1752908/14/17 0530 General Appearance: Alert, Oriented X3, Cooperative, Mild Distress Extremities: Distal Pulses Palpable, No Compartment Syndrom Noted Postop Sensory Motor: Distal Motor Intact, Movement in Toes, Distal Sensation Intact, NVI Distally SURGICAL WOUND : Wound Location/Description Perioperative dressings c/d/i Catheters: Urethral 2 Way Adams Assessment & Plan Impression Postop day #1 right hip intramedullary nail Problems: Plan Weightbearin% weightbearing with the right lower extremity Physical therapy for gait training, transfers, and progressive ambulation. DVT prophylaxis: Heparin, managed by hospitalist team. Current PT 11.1 and INR 1.07 Wound care: Perioperative dressings were be changed to island dressing tomorrow by PA Analgesia: Oral analgesics preferred. Apply ice frequently throughout the day. Discharge plan: Discharge home vs SNF in 1-2 days. Follow-up plan: In 2 weeks at [facility] with PA for wound check and at [address] Duarte with x-rays VTE Prophylaxis: Sub-Q Heparin (Unfractionated) Resuscitation Status: CPR: Attempt Resuscitation Marci Doshi PA-C Aug 14, 2017 08:40
[2017-08-14] MEDS ORDERED: Magnesium Hydroxide 10 mL Oral Concentration PO PRN (08:50)
[2017-08-14] MEDS: Insulin Human NPH 100 Unit/mL Syringe SUBQ SCH ×2 (10:13→18:00)
--- NOTE | 2017-08-14 11:30 | NUR ---
Evaluation completed. Please go to "Notes" then click on "Assessments and Notes" (bottom left corner of screen). Then select appropriate discipline tab on top of screen.
--- NOTE | 2017-08-14 14:36 | PCM.PNMED ---
Subjective Date of Service Aug 14, 2017 Subjective Patient seen and examined. Complains of pain, however controlled with oral pain meds. Vitals stable. Exam Vital Signs Vital Sign - Last Date Time Temp Pulse Resp B/P Pulse Ox O2 Delivery O2 Flow Rate FiO2 08/14/17 10:05 88 08/14/17 08:00 36.4 19 114/66 93 Room Air 08/14/17 04:50 2.00 Intake and Output 08/13/17 08/13/17 08/14/17 Cumulative From/Thru 15:00 23:00 07:00 08/12/17 18:15 - 08/14/17 06:19 Intake Total 2592 ml 761 ml 5325 ml Output Total 700 ml 300 ml 1950 ml Balance 1892 ml 461 ml 3375 ml Intake Oral 400 ml 640 ml IV Total 2592 ml 361 ml 4685 ml Output Urine Total 700 ml 300 ml 1950 ml # Bowel Movements 0 0 Exam General: Middle-aged female lying in bed in acute pain Cardiovascular: Regular rate and rhythm without murmurs, rubs, or gallops appreciated Pulmonary: Clear to auscultation bilaterally without crackles, wheezes, or rhonchi. Normal respiratory effort with no use of accessory muscles. Abdomen: Soft, obese, nontender, nondistended, bowel sounds present. No hepatosplenomegaly or masses appreciated. Extremities: No clubbing, cyanosis, or edema. Varicose veins. Bandage over the incision. No signs of bleeding or erythema . Lab and Diagnostics Result Diagram: 08/14/17 0530 08/14/17 0530 X-Rays, CTs and MRIs X-RAY CHEST ONE VIEW IMPRESSION: No acute pulmonary process. Dictated by: Rosalind Flanagan M.D. on 08/12/2017 at 19:07 X-RAY PELVIS W/LAT HIP (RT) IMPRESSION: Nondisplaced right intertrochanteric hip fracture. Dictated by: Rosalind Flanagan M.D. on 08/12/2017 at 19:06 . 12-lead ECG EKG: Sinus rhythm, heart rate 97, borderline normal axis, prolonged QTC otherwise normal intervals, normal R-wave progression, no pathological Q waves or acute ischemic changes such as ST elevation or depression. . Assessment & Plan Mary Gillette is a 66-year-old female with a past medical history significant for osteoporosis untreated, hypertension, hyperlipidemia, diabetes mellitus type II, non-insulin using, with complication of diabetic peripheral neuropathy who presents to [facility] emergency Department via EMS after enduring a ground-level fall. 1. Acute right intertrochanteric fracture, present on admission, s/p right hip intramedullary nail - The patient endured a ground-level fall with immediate right hip pain thereafter. Of note, the patient has history of osteoporosis untreated. - Differential diagnosis includes: Imbalance versus mechanical fall versus alcohol intoxication leading to fall. - X-ray of pelvis with right lateral hip demonstrated nondisplaced right intertrochanteric hip fracture, as above. - Ordered Tylenol 975 mg every 6 hours as needed for mild pain, hydrocodone 5- 325 mg 1-2 every 4 hours as needed for moderate pain and hydromorphone 0.5 mg every 2 hours as needed for severe pain. Morphine IV was not helping her - Orthopedic physician, Dr. Duarte did the surgery 2. Alcohol intoxication, present on admission. resolved - The patient readily admits to drinking wine this evening. She denies any history of alcohol withdrawal, seizure, or DTs. - Continue to monitor VS and patient closely. 3. Acute hyponatremia, present on admission. Resolved - dc iv fluids, patient has appropriate oral intake at this point Chronic problems: 4. Hypertension, present on admission. Stable. - takes lasix and lisinopril at home for ankle edema, will continue 5. Hyperlipidemia, present on admission. Stable. - takes parvastatin at home 40mg daily, continue home meds 6. Diabetes mellitus type II, non-insulin using, with complication of diabetic peripheral neuropathy, present on admission. Stable. - Hemoglobin A1c pending. - Ordered carbohydrate consistent/heart healthy diet. - Ordered low-dose correctional scale insulin. patient npo at this point for surgery - Continue Novolin N 15 units twice a day before meals. - takes gabapentin 300 mg daily at bedtime. - Held metformin. 7. Osteoporosis, present on admission. Stable. - Not medically treated. Patient has been instructed to take vitamin D and calcium however she does not. - Recommendation from orthopedic surgery appreciated. 8. Depression, present on admission. Stable. -On sertraline at home, continue home meds. PRN antiemetics: Zofran and Maalox. PRN bowel regimen: Senna and MiraLAX. PRN analgesics: Tylenol. DVT prophylaxis : Lovenox, as per ortho recs Patient is admitted under inpatient status with expected length of stay greater than 2 midnights due to severity of presenting symptoms, risk of adverse event, and complexity of treatment plan. . VTE Prophylaxis: Sub-Q Heparin (Unfractionated) VTE Mechanical Devices: Intermittant Pneumatic CD Resuscitation Status: CPR: Attempt Resuscitation Time spent 35 mins Neal Diane MD Aug 14, 2017 14:35 Neal Diane MD Aug 14, 2017 14:35
[2017-08-14] MEDS ORDERED: HYDROmorphone 0.5 mg/0.5 mL iSecure Syringe ONE (15:12)
[2017-08-14] MEDS ORDERED: HYDROmorphone 0.5 mg/0.5 mL iSecure Syringe IVPUSH PRN (16:25)
--- NOTE | 2017-08-14 17:40 | NUR ---
POST-OP PROGRESS Hydrocone 7.5 mg/APAP 325 mg 2 tabs + Vistaril 25 mg PO has been helpful for pain relief. Patient rated her pain as 5/10 after her pain medication. Dilaudid 0.5 mg IVP X one administered for BTP. Tolerating liquids PO and her diet. Denies nausea. No emesis noted. Denies SOB. Patient got up and sat in the chair with PT. Back to the bed with 1-2 PA and the FWW. Dressing on her R hip is CDI. IFC d/cd at 1500. No UO noted at this time. Care continues.
[2017-08-14] MEDS ORDERED: PRAVASTATIN 40 MG PO SCH (21:00)
--- NOTE | 2017-08-15 00:12 | NUR ---
Pain/Anxiety On initial assessment, patient stated pain 7/10 on pain scale. Roxycodone 5mg PO administered along with Vistaril PO. Patient appears to be anxious in regards to moving the right leg with almost the appearance of crying when asked to move. Patient encouraged to cough and deep breathe . VSS. Patient voided 50m ml at 2000. Call light is within reach. Hourly rounding continues.
[2017-08-15 00:22] VITALS: BP 96/59; PULSE 109; RESP 16; O2SAT 95
[2017-08-15] MEDS: Sodium Chloride LOK Flush 10 mL Syringe IV SCH ×3 (01:25→16:30)
[2017-08-15 05:35] VITALS: BP 93/53; PULSE 84; RESP 18; O2SAT 91
[2017-08-15] MEDS: hydrOXYzine Pamoate 25 mg Capsule PO PRN ×3 (05:54→23:29)
--- NOTE | 2017-08-15 05:58 | NUR ---
Ambulating Patient had a very difficult time getting out of the bed and pivoting to use the bsc. Patient appears to have no arm strength to properly use the walker. Physical Therapy will be contacted.
[2017-08-15 07:43] LABS: BASOPHILS % (AUTO) 0.3 % (0-3); EOSINOPHILS % (AUTO) 0.3 % (0-5); MONOCYTES % (AUTO) 8.6 % (4-12); Mean Corpuscular Hemoglobin 29.2 pg (27.0-35.0); Mean Corpuscular Volume 92.2 fL (81-100); NEUTROPHILS % (AUTO) 80.7 % (40-74); Platelet Count 96 bil/L (150-400)
[2017-08-15] MEDS: Insulin Human NPH 100 Unit/mL Syringe SUBQ SCH ×2 (07:48→19:08)
[2017-08-15] MEDS: Insulin LISPRO 300 Unit/3 mL Inj SUBQ SCH ×4 (08:09→21:55)
[2017-08-15] MEDS: Senna-Docusate 8.6-50 mg Tablet PO SCH ×2 (08:10→20:38)
--- NOTE | 2017-08-15 08:54 | PCM.PNORTH ---
Subjective Date of Service: Aug 15, 2017 Visit Information: Reason for Visit Right It Fracture Surgery/Surgery Date right hip IM nail 08/13/2017 Post-Op Day # 2 Date of Admission: Aug 12, 2017 at 20:58 Hospital Day # Subjective Patient complains of "severe pain" all the time. She is rather weepy today. Her is at bedside. She is progressing very slowly with physical therapy. She requires moderate assist of 2 people to get out of bed. She is agreeable to having the dressing changed today. Postop General: No Shortness of Breath, No Chest Pain Pain Management: PO Objective Exam Objective Patient is seen lying in bed Vital Signs and I/O Vital Sign - Last Date Time Temp Pulse Resp B/P Pulse Ox O2 Delivery O2 Flow Rate FiO2 08/15/17 05:35 36.5 84 18 93/53 91 Room Air 08/14/17 04:50 2.00 Intake and Output 08/14/17 08/14/17 08/15/17 Cumulative From/Thru 15:00 23:00 07:00 08/12/17 18:15 - 08/15/17 06:47 Intake Total 600 ml 150 ml 6075 ml Output Total 500 ml 200 ml 2650 ml Balance 100 ml -50 ml 3425 ml Intake Oral 600 ml 150 ml 1390 ml IV Total 4685 ml Output Urine Total 500 ml 200 ml 2650 ml # Bowel Movements 0 Lab & Micro Results Laboratory Tests Test 08/15/17 07:35 White Blood Count 6.6th/mm3 (3.8-10.1) Red Blood Count 2.81mil/mm3 (3.90-5.20) Hemoglobin 8.2g/dL (12.0-15.6) Hematocrit 25.9% (35.0-46.0) Mean Corpuscular Volume 92.2fL (81-100) Mean Corpuscular Hemoglobin 29.2pg (27.0-35.0) Mean Corpuscular Hemoglobin Concent 31.7% (32.0-37.0) Red Cell Distribution Width 15.9% (12.3-15.4) Platelet Count 96bil/L (150-400) Neutrophils (%) (Auto) 80.7% (40-74) Lymphocytes (%) (Auto) 8.9% (14-46) Monocytes (%) (Auto) 8.6% (4-12) Eosinophils (%) (Auto) 0.3% (0-5) Basophils (%) (Auto) 0.3% (0-3) Microbiology 08/13/17 Urine Culture - Final, Complete Escherichia Coli Result Diagram: 08/15/17 0735 08/14/17 0530 General Appearance: Alert, Oriented X3, Cooperative, No Acute Distress Extremities: Distal Pulses Palpable, No Compartment Syndrom Noted, Thigh & Calf Soft/Nontender Postop Sensory Motor: Distal Motor Intact, Distal Sensation Intact, NVI Distally SURGICAL WOUND : Wound Location/Description Right hip: Surgical dressing is removed. There are 3 surgical wounds the lateral right hip. There is moderate dried serous drainage at the most proximal wound. The wound is currently dry. Laci are intact at each wound. There is no erythema or signs of infection. The wounds are cleansed with hydrogen peroxide and dressed with 2 x 2 gauze and Tegaderm at the distal and middle wounds. The proximal wound is dressed with an island dressing. Incision General Appearance: [place] Dressing & Drainage Status: Intact, Changed Activity: Activity per PT Catheters: Urethral 2 Way Adams Assessment & Plan Impression POD #2 status post right hip IM nailing Problems: Plan Weightbearin% weightbearing with the right lower extremity with front wheeled walker Physical therapy for gait training, transfers, and progressive ambulation. Patient is progressing very slowly with physical therapy DVT prophylaxis: Lovenox 40 mg SQ daily 3 weeks followed by aspirin 325 mg twice a day 3 more weeks Wound care: Change dressing every 2-3 days or as needed if saturated Analgesia: Oral analgesics preferred. Apply ice frequently throughout the day. Discharge plan: Discharge to SNF today or tomorrow when medically stable. Patient needs daily PT and OT for 1 month. She is not safe for discharge to home. Follow-up plan: In 2 weeks at [facility] with AFSANEH for wound check and at [address] Duarte with x-rays Pain Management: Oxycodone, Vistaril, Tylenol VTE Prophylaxis: Sub-Q Heparin (Unfractionated) Resuscitation Status: CPR: Attempt Resuscitation [place] Collins PA-C Aug 15, 2017 08:54
[2017-08-15 11:32] VITALS: BP 95/56; PULSE 106; RESP 18; O2SAT 95
--- NOTE | 2017-08-15 12:35 | NUR ---
Phyllisue Tablet provided for SNF choice list. Jenny Anand MSW
--- NOTE | 2017-08-15 13:35 | PCM.PNMED ---
Subjective Date of Service Aug 15, 2017 Subjective No overnight events. Exam Vital Signs Vital Sign - Last Date Time Temp Pulse Resp B/P Pulse Ox O2 Delivery O2 Flow Rate FiO2 08/15/17 11:32 37.7 106 18 95/56 95 Room Air 08/14/17 04:50 2.00 Intake and Output 08/14/17 08/14/17 08/15/17 Cumulative From/Thru 15:00 23:00 07:00 08/12/17 18:15 - 08/15/17 06:47 Intake Total 600 ml 150 ml 6075 ml Output Total 500 ml 200 ml 2650 ml Balance 100 ml -50 ml 3425 ml Intake Oral 600 ml 150 ml 1390 ml IV Total 4685 ml Output Urine Total 500 ml 200 ml 2650 ml # Bowel Movements 0 Exam General: Middle-aged female lying in bed in acute pain Cardiovascular: Regular rate and rhythm without murmurs, rubs, or gallops appreciated Pulmonary: Clear to auscultation bilaterally without crackles, wheezes, or rhonchi. Normal respiratory effort with no use of accessory muscles. Abdomen: Soft, obese, nontender, nondistended, bowel sounds present. No hepatosplenomegaly or masses appreciated. Extremities: No clubbing, cyanosis, or edema. Varicose veins. Bandage over the incision. No signs of bleeding or erythema . IVs and Medications Medications Reviewed: Medications were reviewed in detail Lab and Diagnostics Result Diagram: 08/15/17 0735 08/14/17 0530 X-Rays, CTs and MRIs X-RAY CHEST ONE VIEW IMPRESSION: No acute pulmonary process. Dictated by: Rosalind Flanagan M.D. on 08/12/2017 at 19:07 X-RAY PELVIS W/LAT HIP (RT) IMPRESSION: Nondisplaced right intertrochanteric hip fracture. Dictated by: Rosalind Flanagan M.D. on 08/12/2017 at 19:06 . 12-lead ECG EKG: Sinus rhythm, heart rate 97, borderline normal axis, prolonged QTC otherwise normal intervals, normal R-wave progression, no pathological Q waves or acute ischemic changes such as ST elevation or depression. . Assessment & Plan Mary Gillette is a 66-year-old female with a past medical history significant for osteoporosis untreated, hypertension, hyperlipidemia, diabetes mellitus type II, non-insulin using, with complication of diabetic peripheral neuropathy who presents to [facility] emergency Department via EMS after enduring a ground-level fall POD #2 status post right hip IM nailing Acute right intertrochanteric fracture, present on admission, POD #2 status post right hip IM nailing - The patient endured a ground-level fall with immediate right hip pain thereafter. history of osteoporosis untreated. - X-ray of pelvis with right lateral hip demonstrated nondisplaced right intertrochanteric hip fracture, as above. - Orthopedic physician, Dr. Duarte. Follow up surgery recs. - DVT prophylaxis: Lovenox 40 mg SQ daily 3 weeks followed by aspirin 325 mg twice a day 3 more weeks - Wound care: Change dressing every 2-3 days or as needed if saturated - Analgesia: Oral analgesics preferred. Apply ice frequently throughout the day. - Discharge plan: Discharge to SNF today or tomorrow when medically stable. Patient needs daily PT and OT for 1 month. She is not safe for discharge to home. - Follow-up plan: In 2 weeks at [facility] with PA for wound check and at [address] Duarte with x-ray Diabetes mellitus type II, non-insulin using, with complication of diabetic peripheral neuropathy, present on admission. Stable. - Hemoglobin A1c- 6.6. - Ordered carbohydrate consistent/heart healthy diet. - Ordered low-dose correctional scale insulin - Continue Novolin N 15 units twice a day before meals. - Held metformin. Resume Metformin on discharge. Hypertension, present on admission. Stable. - takes lasix and lisinopril at home for ankle edema, will continue Alcohol intoxication, present on admission. resolved - The patient readily admits to drinking wine this evening. She denies any history of alcohol withdrawal, seizure, or DTs. - Continue to monitor VS and patient closely. Acute hyponatremia, present on admission. Resolved - dc iv fluids, patient has appropriate oral intake at this point Chronic problems: Hyperlipidemia, present on admission. Stable. - takes pravastatin at home 40mg daily, continue home meds Osteoporosis, present on admission. Stable. - Not medically treated. Patient has been instructed to take vitamin D and calcium however she does not. Depression, present on admission. Stable. -On sertraline at home, continue home meds. PRN antiemetics: Zofran and Maalox. PRN bowel regimen: Senna and MiraLAX. PRN analgesics: Tylenol. DVT prophylaxis : Lovenox 40 mg SQ daily 3 weeks from 08/04, followed by aspirin 325 mg twice a day 3 more weeks Patient is admitted under inpatient status with expected length of stay greater than 2 midnights due to severity of presenting symptoms, risk of adverse event, and complexity of treatment plan. . VTE Prophylaxis: Sub-Q Heparin (Unfractionated) VTE Mechanical Devices: Intermittant Pneumatic CD Resuscitation Status: CPR: Attempt Resuscitation Aaron Islas MD Aug 15, 2017 13:35
--- NOTE | 2017-08-15 16:54 | NUR ---
Social Work- Readiness for Discharge/Multidisciplinary Rounds Data: EMR reviewed. Pt is on day 3 of hospitalization. Pt discussed in multidisciplinary rounds, pt is POD 2. Likely to discharge tomorrow. SNF order received. SW met with pt at bedside, SNF role explained. Pt is agreeable to SNF. Silvervue tablet provided and pt chose 1) [facility] and 2) [facility]. L[employer] ACQUISITION ANALYST made referral to these facilities, awaiting acceptance. Paperwork and PASRR in folder. SW will continue to follow. Assessment: Pt for whom SNF is medically indicated. Plan: Referrals made to [facility] and [facility]. Paperwork and PASRR in folder. SW will continue to follow. MISA Alanis
[2017-08-15 17:55] VITALS: BP 107/65; PULSE 102; RESP 18; O2SAT 96
[2017-08-15 19:59] VITALS: BP 99/64; PULSE 114; RESP 16; O2SAT 95
[2017-08-16] MEDS: Sodium Chloride LOK Flush 10 mL Syringe IV SCH ×3 (00:33→16:23)
[2017-08-16 00:57] VITALS: BP 92/56; PULSE 101; RESP 18; O2SAT 92
--- NOTE | 2017-08-16 03:38 | NUR ---
Activity/Void Pt alert, oriented, and able to make needs known. Pleasant and cooperative with care. Dressing on right hip is C/D/I with no s/s of infection noted. This LN and NAC helped transfer pt with FWW from bed to BSC. Pt voided 150cc sophia color urine. Fluid intake is being encouraged. No behavioral or safety issue noted so far. Will continue to monitor.
[2017-08-16 05:10] VITALS: BP 104/69; PULSE 93; RESP 16; O2SAT 92
[2017-08-16] MEDS: Insulin LISPRO 300 Unit/3 mL Inj SUBQ SCH ×2 (08:07→11:42)
[2017-08-16] MEDS: Insulin Human NPH 100 Unit/mL Syringe SUBQ SCH (08:07)
[2017-08-16] MEDS: Senna-Docusate 8.6-50 mg Tablet PO SCH (08:08)
[2017-08-16] MEDS: hydrOXYzine Pamoate 25 mg Capsule PO PRN ×3 (08:19→16:26)
[2017-08-16 08:22] VITALS: BP 103/69; PULSE 82; RESP 18; O2SAT 92
--- NOTE | 2017-08-16 08:25 | PCM.PNORTH ---
Subjective Date of Service: Aug 16, 2017 Visit Information: Reason for Visit Right It Fracture Surgery/Surgery Date right hip IM nailing Post-Op Day # 3 Date of Admission: Aug 12, 2017 at 20:58 Hospital Day # Subjective Patient complains of pain in the right hip and leg. Postop General: No Shortness of Breath, No Chest Pain Pain Management: PO Objective Exam Objective Patient is seen in bed Vital Signs and I/O Vital Sign - Last Date Time Temp Pulse Resp B/P Pulse Ox O2 Delivery O2 Flow Rate FiO2 08/16/17 08:22 36.6 82 18 103/69 92 Room Air 08/14/17 04:50 2.00 Intake and Output 08/15/17 08/15/17 08/16/17 Cumulative From/Thru 15:00 23:00 07:00 08/12/17 18:15 - 08/16/17 05:44 Intake Total 900 ml 100 ml 7075 ml Output Total 400 ml 150 ml 3200 ml Balance 500 ml -50 ml 3875 ml Intake Oral 900 ml 100 ml 2390 ml IV Total 4685 ml Output Urine Total 400 ml 150 ml 3200 ml # Bowel Movements 0 0 0 Lab & Micro Results Microbiology 08/13/17 Urine Culture - Final, Complete Escherichia Coli Result Diagram: 08/15/17 0735 08/14/17 0530 General Appearance: Alert, Oriented X3, Cooperative, No Acute Distress Extremities: Distal Pulses Palpable, No Compartment Syndrom Noted, Thigh & Calf Soft/Nontender Postop Sensory Motor: Distal Motor Intact, Distal Sensation Intact, NVI Distally SURGICAL WOUND : Wound Location/Description Right hip: There is mild serous drainage at the incision sites. No erythema is seen. There is mild ecchymosis. Activity: Activity per PT Catheters: None Assessment & Plan Impression POD #3 status post right hip IM nailing Problems: Plan Weightbearin% weightbearing with the right lower extremity with front wheeled walker Physical therapy for gait training, transfers, and progressive ambulation. Patient is progressing very slowly with physical therapy DVT prophylaxis: Lovenox 40 mg SQ daily 3 weeks followed by aspirin 325 mg twice a day 3 more weeks Wound care: Nursing please change dressings prior to discharge today Change dressing every 2-3 days or as needed if saturated Analgesia: Oral analgesics preferred. Apply ice frequently throughout the day. Discharge plan: Discharge to SNF today if medically stable. Patient needs daily PT and OT for 1 month. Follow-up plan: In 2 weeks at [facility] with AFSANEH for wound check and at [address] Duarte with x-rays Pain Management: Oxycodone, Dilaudid, Vistaril VTE Prophylaxis: Sub-Q Heparin (Unfractionated) Resuscitation Status: CPR: Attempt Resuscitation Anna Elaine PA-C Aug 16, 2017 08:25
[2017-08-16 11:18] VITALS: BP 93/59
--- NOTE | 2017-08-16 11:54 | PCM.DC.MED ---
Discharge Summary Date of Service Aug 16, 2017 Dates of Hospitalization Date of Hospital Admission Aug 12, 2017 at 20:58 Date of Discharge: Aug 16, 2017 Providers: Admitting Physician: Josh Acevedo MD Primary Care Physician: Roshni Brown PA-C Attending Physician: Aaron Islas MD Diagnosis at Time of Discharge Diagnosis at Time of Discharge Acute right intertrochanteric fracture, present on admission, POD #3 status post right hip IM nailing Diabetes mellitus type II, non-insulin using, with complication of diabetic peripheral neuropathy, present on admission. Stable. Hypertension, present on admission. Stable. Alcohol intoxication, present on admission. resolved Acute hyponatremia, present on admission. Resolved Chronic problems: Hyperlipidemia, present on admission. Stable. Osteoporosis, present on admission. Stable. Depression, present on admission. Stable. Consultations Ortho- Dr. Duarte Procedures XRay, CTs & MRIs X-RAY CHEST ONE VIEW IMPRESSION: No acute pulmonary process. Dictated by: Rosalind Flanagan M.D. on 08/12/2017 at 19:07 X-RAY PELVIS W/LAT HIP (RT) IMPRESSION: Nondisplaced right intertrochanteric hip fracture. Dictated by: Rosalind Flanagan M.D. on 08/12/2017 at 19:06 . ECG 12 Lead EKG: Sinus rhythm, heart rate 97, borderline normal axis, prolonged QTC otherwise normal intervals, normal R-wave progression, no pathological Q waves or acute ischemic changes such as ST elevation or depression. . Brief History Per HPI by Dr. Guerrero on 08/12/17 Mary Gillette is a 66-year-old female with a past medical history significant for osteoporosis untreated, hypertension, hyperlipidemia, diabetes mellitus type II, non-insulin using, with complication of diabetic peripheral neuropathy who presents to [facility] emergency Department via EMS after enduring a ground-level fall. The patient reports that she was checking on baked potatoes in the oven when she lost her balance and slipped and fell on her linoleum floor. She denies loss of consciousness or trauma to her head. She reports right hip pain since the fall. She rates the pain a +9 out of 10 in severity. She reports she "cracked some ribs "several years ago which prompted she be evaluated for osteoporosis. She reports that she is supposed to be taking calcium and vitamin D but does not. She denies headache, vision changes, chest pain, shortness of breath, abdominal pain, nausea, vomiting, fever, chills, dysuria, constipation or diarrhea. She reports that she has been drinking wine tonight. She denies history of alcohol withdrawal, seizures , or DTs. Vital signs in the ER: Temperature 36.6. Pulse 93. Respiratory rate 16. Blood pressure 135/66. Pulse ox 100% on 2 L nasal cannula. She received fentanyl IV 50 g 1, morphine sulfate IV 4 mg 2, and 1 L of NS in the ED. PCP is Roshni Brown PA-C. Hospital Course Mary Gillette is a 66-year-old female with a past medical history significant for osteoporosis untreated, hypertension, hyperlipidemia, diabetes mellitus type II, non-insulin using, with complication of diabetic peripheral neuropathy who presents to [facility] emergency Department via EMS after enduring a ground-level fall POD #3 status post right hip IM nailing Acute right intertrochanteric fracture, present on admission, POD #3 status post right hip IM nailing - The patient endured a ground-level fall with immediate right hip pain thereafter. history of osteoporosis untreated. - X-ray of pelvis with right lateral hip demonstrated nondisplaced right intertrochanteric hip fracture, as above. - Orthopedic physician, Dr. Duarte. Follow up surgery recs. - DVT prophylaxis: Lovenox 40 mg SQ daily 3 weeks until Sep 04, followed by aspirin 325 mg twice a day 3 more weeks - Wound care: Change dressing every 2-3 days or as needed if saturated - Analgesia: Oral analgesics preferred. Apply ice frequently throughout the day. - Discharge plan: Discharge to [facility] for daily PT and OT for 1 month. She is not safe for discharge to home. - Follow-up plan: In 2 weeks at [facility] with AFSANEH for wound check and at [address] Duarte with x-ray Diabetes mellitus type II, non-insulin using, with complication of diabetic peripheral neuropathy, present on admission. Stable. - Hemoglobin A1c- 6.6. - Ordered carbohydrate consistent/heart healthy diet. - Ordered low-dose correctional scale insulin - Continue Novolin N 15 units twice a day before meals. - Held metformin. Resume Metformin on discharge. Hypertension, present on admission. Stable. - takes lasix and lisinopril at home for ankle edema, will continue Alcohol intoxication, present on admission. resolved - The patient readily admits to drinking wine this evening. She denies any history of alcohol withdrawal, seizure, or DTs. - No evidence of withdrawal at this time. Acute hyponatremia, present on admission. Resolved - dc iv fluids, patient has appropriate oral intake at this point Chronic problems: Hyperlipidemia, present on admission. Stable. - takes pravastatin at home 40mg daily, continue home meds Osteoporosis, present on admission. Stable. - Not medically treated. Patient has been instructed to take vitamin D and calcium however she does not. Depression, present on admission. Stable. -On sertraline at home, continue home meds. PRN antiemetics: Zofran and Maalox. PRN bowel regimen: Senna and MiraLAX. PRN analgesics: Tylenol. DVT prophylaxis : Lovenox 40 mg SQ daily 3 weeks from 08/04, followed by aspirin 325 mg twice a day 3 more weeks Dispo- Discharge to [facility] for daily PT and OT for 1 month. She is not safe for discharge to home. Follow-up plan: In 2 weeks at [facility] with AFSANE[facility] for wound check and at [address] Duarte with x-ray Resume Metformin on discharge. DVT prophylaxis: Lovenox 40 mg SQ daily 3 weeks until Sep 04, followed by aspirin 325 mg twice a day 3 more weeks . Exam Vital Signs (Last) Date Time Temp Pulse Resp B/P Pulse Ox O2 Delivery O2 Flow Rate FiO2 08/16/17 11:18 93/59 08/16/17 08:22 36.6 82 18 92 Room Air 08/14/17 04:50 2.00 Test 08/12/17 18:27 08/13/17 10:41 08/14/17 05:30 08/15/17 07:35 Hemoglobin A1c 6.6% (4.8-5.6) Magnesium Level 1.8mg/dL (1.6-2.6) Total Bilirubin 0.3mg/dL (0.0-1.2) Aspartate Amino Transf (AST/SGOT) 19U/L (0-50) Alanine Aminotransferase (ALT/SGPT) 13U/L (0-32) Alkaline Phosphatase 78U/L (25-165) Total Protein 7.1g/dL (6.4-8.4) Albumin 4.1g/dL (3.4-5.0) Urine Color Straw (YELLOW) Urine Appearance Hazy (CLEAR,HAZY) Urine pH 6.0 (5.0-8.0) Urine Specific [place] 1.020 (1.003-1.035) Urine Protein Negativemg/dL (NEG,TRACE) Urine Glucose (UA) Negativemg/dL (NEGATIVE) Urine Ketones Negativemg/dL (NEGATIVE) Urine Occult Blood Negative (NEGATIVE) Urine Nitrite Positive (NEGATIVE) Urine Bilirubin Negative (NEGATIVE) Urine Urobilinogen Normalmg/dL (NORMAL) Urine Leukocyte Esterase Negative (NEGATIVE) Urine RBC 0-2/hpf (0-2) Urine WBC 6-10/hpf (0-5) Urine Epithelial Cells Occasional/hpf (NONE-MOD) Urine Crystals None seen (NONE SEEN) Urine Bacteria Many/hpf (NONE-FEW) Urine Hyaline Casts Occasional/lpf (NONE) Urine Granular Casts None seen (NONE SEEN) Urine Waxy Casts None seen (NONE SEEN) Urine Red Blood Cell Casts None seen (NONE SEEN) Urine White Blood Cell Casts None seen (NONE SEEN) Urine Mucus None seen (None Seen) Urine Trichomonas None seen (NONE SEEN) Urine Yeast None (NONE SEEN) Urinalysis Comment None Urine Culture Reflexed Indicated Prothrombin Time 11.1sec (8.1-12.5) Prothromb Time International Ratio 1.07ratio Sodium Level 139mEq/L (134-144) Potassium Level 4.6mEq/L (3.5-5.2) Chloride Level 105mEq/L (97-108) Carbon Dioxide Level 27mmol/L (18-29) Blood Urea Nitrogen 8mg/dL (8-27) Creatinine 0.73mg/dL (0.57-1.00) Estimat Glomerular Filtration Rate 114mL/min (>59) Glucose Level 149mg/dL (60-99) Calcium Level 7.5mg/dL (8.5-10.1) White Blood Count 6.6th/mm3 (3.8-10.1) Red Blood Count 2.81mil/mm3 (3.90-5.20) Hemoglobin 8.2g/dL (12.0-15.6) Hematocrit 25.9% (35.0-46.0) Mean Corpuscular Volume 92.2fL (81-100) Mean Corpuscular Hemoglobin 29.2pg (27.0-35.0) Mean Corpuscular Hemoglobin Concent 31.7% (32.0-37.0) Red Cell Distribution Width 15.9% (12.3-15.4) Platelet Count 96bil/L (150-400) Neutrophils (%) (Auto) 80.7% (40-74) Lymphocytes (%) (Auto) 8.9% (14-46) Monocytes (%) (Auto) 8.6% (4-12) Eosinophils (%) (Auto) 0.3% (0-5) Basophils (%) (Auto) 0.3% (0-3) Discharge Medications Discharge Medications Furosemide (Furosemide) 20 Mg Tab 20 MG PO DAILY (Reported) Gabapentin (Gabapentin) 300 Mg Capsule 300 MG PO HS (Reported) Lisinopril (Lisinopril) 10 Mg Tablet 10 MG PO DAILY (Reported) Metformin ER (Metformin ER) 1,000 Mg Tablet 1,000 MG PO BID (Reported) NPH, Human Insulin Isophane (Novolin-N U100 Insulin Vial) 100 Unit/1 Ml Vial 15 UNITS SQ BID (Reported) Pravastatin (Pravachol) 40 Mg Tablet 40 MG PO HS (Reported) Sertraline HCl (Sertraline) 100 Mg Tablet 100 MG ORAL DAILY (Reported) Additional med instructions Resume Metformin on discharge. DVT prophylaxis: Lovenox 40 mg SQ daily 3 weeks until Sep 04, followed by aspirin 325 mg twice a day 3 more weeks . Followup Plan Disposition: Discharge to [facility] for daily PT and OT for 1 month. She is not safe for discharge to home. Follow-up plan Follow-up plan: In 2 weeks at [facility] with [facility] for wound check and at [address] Duarte with x-ray Provider: Raphael Duarte DO Follow-up in: 6 weeks Mid-level Provider: Anna Elaine PA-C Follow-up with Mid-level in: 2 weeks Time spent Greater than 30 minutes was spent in preparation of discharge with greater than 50% of that time dedicated to patient counseling and coordination of care. copies to: Roshni Brown PA-C, Navdeep MD Aug 16, 2017 11:54
--- NOTE | 2017-08-16 11:56 | PCM.DIMED ---
Discharge Instructions Date of Service Aug 16, 2017 Dates of Hospitalization Aug 12, 2017 at 20:58 Discharge Diagnosis Discharge Diagnosis Acute right intertrochanteric fracture, present on admission, POD #3 status post right hip IM nailing Diabetes mellitus type II, non-insulin using, with complication of diabetic peripheral neuropathy, present on admission. Stable. Hypertension, present on admission. Stable. Alcohol intoxication, present on admission. resolved Acute hyponatremia, present on admission. Resolved Chronic problems: Hyperlipidemia, present on admission. Stable. Osteoporosis, present on admission. Stable. Depression, present on admission. Stable. Medication Instructions Additional med instructions Resume Metformin on discharge. DVT prophylaxis: Lovenox 40 mg SQ daily 3 weeks until Sep 04, followed by aspirin 325 mg twice a day 3 more weeks Hold Lisinopril due to low blood pressure. Can resume if BP is >140/80 in more than 3 readings. Try to not give at same time as pain medication. . Patient Instructions Follow-up plan Follow-up plan: In 2 weeks at [facility] with PA for wound check and at [address] Duarte with x-ray Provider: Raphael Duarte DO Follow-up in: 6 weeks Mid-level Provider (F9): Anna Elaine PA-C Follow-up with Mid-level in: 2 weeks Aaron Islas MD Aug 16, 2017 11:56
[2017-08-16] MEDS ORDERED: DOCU-41 PO (12:06)
[2017-08-16] MEDS ORDERED: ENOX40DI8 SUBQ (12:06)
[2017-08-16] MEDS ORDERED: Acetaminophen PO (12:06)
[2017-08-16] MEDS ORDERED: MELA5TAB14 PO (12:06)
[2017-08-16] MEDS ORDERED: OXYC-530 PO (12:06)
[2017-08-16] MEDS ORDERED: POLY17PO6 PO (12:09)
[2017-08-16] MEDS ORDERED: DIPH25CA6 PO (12:09)
[2017-08-16] MEDS ORDERED: [UNRECOGNIZED DRUG - CODE] IVPUSH (12:09)
[2017-08-16] MEDS ORDERED: HYDR-3797 PO (12:09)
--- NOTE | 2017-08-16 13:27 | NUR ---
Social Work- Discharge/Multidisciplinary Rounds Data: EMR reviewed. Pt is on day 4 of hospitalization. Pt discussed in multidisciplinary rounds, pt is POD 3. Pt is medically stable for discharge today. Discharge orders are active. T/C to Isi at [facility] who is agreeable to accepting pt today. Pt will be followed by Dr. Borja. Packet and discharge orders faxed. Paperwork in pt's chart, [facility] faxed and in packet. Pt is agreeable to discharge plan. Facility scheduled transportation at 1700, as this was the only available time. RN, UC, pt/family, and [facility] all updated and agreeable to plan. Assessment: Pt for whom SNF is medically indicated. Plan: Pt to d/c to [facility] today at [address] Borja will follow. RN, UC, pt/family, and [facility] all updated and agreeable to plan. Jenny Anand, ANIMAL RESEARCHER
[2017-08-16 16:43] VITALS: BP 105/62; PULSE 95; RESP 18; O2SAT 95
--- NOTE | 2017-08-16 16:59 | NUR ---
DC: Pickup planned for 1700 to [facility]. Report called to [facility], and insulin management for evening discussed with RN (as pt is transferring at mealtime). Iv dc'd cannula intact. Pain meds given at 1630 in preparation for transfer. Pt agrees to plan and awaiting transport.
== END 2017-08-16 17:55 | DRG 481 ==
LOC: EDBD 17:48 → SED 17:48 → MOC 20:58 → OSC 08-13 21:34
PROVIDERS: ADMIT Hospitalist; ATTEND Hospitalist
PROC: 0QS636Z Reposition Right Upper Femur with Intramedullary Internal Fixation Device, Percutaneous Approach (ICD-10-PCS; principal; 2017-08-13 17:00)
DX: S72.141A Displaced intertrochanteric fracture of right femur, initial encounter for closed fracture (principal); E87.1 Hypo-osmolality and hyponatremia; F10.129 Alcohol abuse with intoxication, unspecified; I10 Essential (primary) hypertension; E11.42 Type 2 diabetes mellitus with diabetic polyneuropathy; E78.5 Hyperlipidemia, unspecified; F32.9 Major depressive disorder, single episode, unspecified; M81.0 Age-related osteoporosis without current pathological fracture; W18.39XA Other fall on same level, initial encounter; Y93.9 Activity, unspecified; Y92.000 Kitchen of unspecified non-institutional (private) residence as the place of occurrence of the external cause